=== PATIENT | female | born 1940 | race Caucasian/White ===

== ENCOUNTER 2021-03-12 07:33 | Observation (INO) | payer MEDICARE ==
--- NOTE | 2021-03-12 07:52 | ED ---
General Adult HPI - General Chief complaint: Arrhythmia/Palpitations Stated complaint: bradycardia Time Seen by Provider: 03/12/21 07:34 Source: patient, EMS, RN notes reviewed Mode of arrival: EMS Limitations: no limitations - History of Present Illness Initial comments: Patient is a pleasant 81-year-old female presenting from [facility] with concerns for bradycardia. Unclear patient has a history of this previously. Patient is unclear on her medications. Chart reviewed. Patient states she does have fatigue. Fatigue has been intermittent. Patient is unclear how long - Related Data Home Medications Medication Instructions Recorded Confirmed Cholecalciferol [Vitamin D3 (25 1,000 unit PO DAILY 04/07/17 04/07/17 Mcg = 1000 Iu)] Cyanocobalamin (Vitamin B-12) 1,000 mcg PO Q48H 04/07/17 04/07/17 [Vitamin B-12] Etodolac [Lodine] 400 mg PO DAILY 04/07/17 04/07/17 Famotidine [Pepcid] 20 mg PO DAILY 04/07/17 04/07/17 Furosemide [Lasix] 60 mg PO DAILY 04/07/17 04/08/17 Levothyroxine Sodium [Synthroid] 50 mcg PO DAILY 04/07/17 04/07/17 Lovastatin [Mevacor] 80 mg PO DAILY 04/07/17 04/08/17 Multivit-Min/Iron/Folic/Lutein 1 tab PO DAILY 04/07/17 04/07/17 [Centrum Silver Women Tablet] Potassium Chloride [Klor-Con 20] 20 meq PO DAILY 04/07/17 04/08/17 Fluticasone Nasal [place] [Flonase 2 spr EA NOSTRIL DAILY PRN 04/08/17 04/08/17 Nasal [place]] Losartan Potassium 100 mg PO DAILY 04/08/17 04/08/17 hydroCHLOROthiazide 25 mg PO BID 04/08/17 04/08/17 Previous Rx's Medication Instructions Recorded Amoxic-Pot Clav 875-125Mg 1 tab PO Q12HR #10 tablet 04/14/17 [Augmentin 875-125] Ipratropium-Albuterol Nebulize 3 ml INHALATION RT-Q4H PRN 04/14/17 [Duoneb 0.5 mg-3 mg/3 ml Soln] ampul.neb Ipratropium-Albuterol Nebulize 3 ml INHALATION RT-QID ampul.neb 04/14/17 [Duoneb 0.5 mg-3 mg/3 ml Soln] Metoprolol Succinate (ER) [Toprol 12.5 mg PO BID tab.er.24h 04/14/17 XL] predniSONE 10 mg PO DIRECTED #9 tab 04/14/17 Allergies Allergy/AdvReac Type Severity Reaction Status Date / Time No Known Allergies Allergy Verified 03/12/21 07:42 Review of Systems ROS Statement: Those systems with pertinent positive or pertinent negative responses have been documented in the HPI. ROS Other: All systems not noted in ROS Statement are negative. Constitutional: Denies: fever Eyes: Denies: eye pain ENT: Denies: ear pain Respiratory: Denies: cough Cardiovascular: Denies: chest pain, palpitations Endocrine: Reports: fatigue Gastrointestinal: Denies: abdominal pain Genitourinary: Denies: urgency Musculoskeletal: Denies: back pain Skin: Denies: rash Neurological: Denies: weakness Past Medical History Past Medical History: Hypertension, Thyroid Disorder Additional Past Medical History / Comment(s): hiatal hernia. History of Any Multi-Drug Resistant Organisms: None Reported Past Surgical History: Joint Replacement Additional Past Surgical History / Comment(s): bilat hip replacements. Past Anesthesia/Blood Transfusion Reactions: No Reported Reaction Past Psychological History: Depression Smoking Status: Never smoker Past Alcohol Use History: None Reported Past Drug Use History: None Reported - Past Family History Mother History Unknown: Yes Father History Unknown: Yes General Exam Limitations: no limitations General appearance: alert, in no apparent distress Head exam: Present: normocephalic Eye exam: Present: normal appearance Neck exam: Present: normal inspection Respiratory exam: Present: normal lung sounds bilaterally Cardiovascular Exam: Present: bradycardia Expanded Peripheral pulses: 2+: Radial (R), Radial (L), Dorsalis Pedis (R), Dorsalis Pedis (L) GI/Abdominal exam: Present: soft. Absent: tenderness Extremities exam: Present: pedal edema (Trace bilateral). Absent: calf tenderness Neurological exam: Present: alert Psychiatric exam: Present: normal affect, normal mood Skin exam: Present: normal color Course Vital Signs 03/12/21 07:37 Temperature 98 F Pulse Rate 43 L Respiratory 18 Rate Blood Pressure 125/50 O2 Sat by Pulse 98 Oximetry EKG Findings - EKG Comments: EKG Findings:: Sinus bradycardia rate 38. MS 174. QRS 122. QT 542. QTC 4:30. Left axis. LVH. No acute ST change. Inferior T wave inversion. Medical Decision Making - Medical Decision Making Patient reevaluated and updated. Dr. Drew has been paged for admission cov ering Dr. Yan. - Lab Data Result diagrams: 03/12/21 07:47 03/12/21 07:47 Lab Results 03/12/21 03/12/21 03/12/21 Range/Units 07:47 07:47 07:47 WBC 9.2 (3.8-10.6) k/uL RBC 3.94 (3.80-5.40) m/uL Hgb 12.1 (11.4-16.0) gm/dL Hct 35.0 (34.0-46.0) % MCV 88.9 (80.0-100.0) fL MCH 30.6 (25.0-35.0) pg MCHC 34.4 (31.0-37.0) g/dL RDW 13.4 (11.5-15.5) % Plt Count 317 (150-450) k/uL MPV 7.2 Neutrophils % 69 % Lymphocytes % 20 % Monocytes % 5 % Eosinophils % 5 % Basophils % 1 % Neutrophils # 6.3 (1.3-7.7) k/uL Lymphocytes # 1.8 (1.0-4.8) k/uL Monocytes # 0.4 (0-1.0) k/uL Eosinophils # 0.4 (0-0.7) k/uL Basophils # 0.1 (0-0.2) k/uL PT 10.4 (9.0-12.0) sec INR 1.0 (<1.2) APTT 22.4 (22.0-30.0) sec Sodium 134 L (137-145) mmol/L Potassium 3.5 (3.5-5.1) mmol/L Chloride 93 L (98-107) mmol/L Carbon Dioxide 35 H (22-30) mmol/L Anion Gap 6 mmol/L BUN 33 H (7-17) mg/dL Creatinine 0.81 (0.52-1.04) mg/dL Est GFR (CKD-EPI)AfAm 80 (>60 ml/min/1.73 sqM) Est GFR (CKD-EPI)NonAf 70 (>60 ml/min/1.73 sqM) Glucose 114 H (74-99) mg/dL Calcium 9.1 (8.4-10.2) mg/dL Magnesium 1.5 L (1.6-2.3) mg/dL Total Bilirubin 0.7 (0.2-1.3) mg/dL AST 31 (14-36) U/L ALT 15 (4-34) U/L Alkaline Phosphatase 85 (38-126) U/L Total Protein 6.8 (6.3-8.2) g/dL Albumin 3.2 L (3.5-5.0) g/dL - Radiology Data Radiology results: image reviewed (This x-ray shows elevated right hemidiaphragm) Disposition Clinical Impression: Bradycardia Disposition: ADMITTED IP TO THIS [facility] Is patient prescribed a controlled substance at d/c from ED?: No Referrals: Michael Wolfe MD [Primary Care Provider] - 1-2 days Decision Time: 09:02
[2021-03-12 08:29] LABS: Basophils # (A) 0.1 k/uL (0-0.2); Basophils % (A) 1 %; Eosinophils # (A) 0.4 k/uL (0-0.7); Eosinophils % (A) 5 %; HGB 12.1 gm/dL (11.4-16.0); Lymphocytes # (A) 1.8 k/uL (1.0-4.8); Lymphocytes % (A) 20 %; MCH 30.6 pg (25.0-35.0); MCHC 34.4 g/dL (31.0-37.0); MCV 88.9 fL (80.0-100.0); Mean Platelet Volume 7.2; Monocytes # (A) 0.4 k/uL (0-1.0); Monocytes % (A) 5 %; Neutrophils # (A) 6.3 k/uL (1.3-7.7); Neutrophils % (A) 69 %; Platelet Count 317 k/uL (150-450); RBC 3.94 m/uL (3.80-5.40); RDW 13.4 % (11.5-15.5); WBC 9.2 k/uL (3.8-10.6)
--- NOTE | 2021-03-12 08:29 | XR ---
EXAMINATION TYPE: XR chest 1V portable DATE OF EXAM: 03/12/2021 COMPARISON: 04/13/2017 HISTORY: Dysrhythmia TECHNIQUE: Single frontal view of the chest is obtained. FINDINGS: There is no focal air space opacity, pleural effusion, or pneumothorax seen. The cardiac silhouette size is within normal limits. The osseous structures are intact. Persistent elevated rig ht hemidiaphragm. Heart size stable. Arthropathy of the right shoulder. Suggestion of calcified lymph node in the right hilum. 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
[2021-03-12 08:42] LABS: Partial Thromboplastin Time 22.4 sec (22.0-30.0); Prothrombin Time 10.4 sec (9.0-12.0)
[2021-03-12 08:48] LABS: Albumin 3.2 g/dL (3.5-5.0); Calcium 9.1 mg/dL (8.4-10.2); Total Bilirubin 0.7 mg/dL (0.2-1.3); Total Protein 6.8 g/dL (6.3-8.2)
[2021-03-12 08:56] LABS: Magnesium 1.5 mg/dL (1.6-2.3); Potassium 3.5 mmol/L (3.5-5.1)
[2021-03-12] MEDS ORDERED: MAGNESIUM SULFATE-D5W PMX 1 GM in DEXTROSE/WATER 1 100ML.BAG IVPB ONE (09:00)
[2021-03-12] MEDS ORDERED: SODIUM CHLORIDE 0.9% 1,000 ML IV STA (09:01)
[2021-03-12] MEDS ORDERED: NALOXONE 0.4 MG/ML 1 ML VIAL IV PRN (09:03)
[2021-03-12 09:04] LABS: T4, Free (Free Thyroxine) 1.75 ng/dL (0.78-2.19)
[2021-03-12] MEDS ORDERED: POTASSIUM CHLORIDE ER 20 MEQ TAB.ER PO STA (09:35)
[2021-03-12] MEDS: SODIUM CHLORIDE 0.9% 1,000 ML IV SCH (09:40)
--- NOTE | 2021-03-12 11:24 | P.CRDCN ---
History of Present Illness History of present illness: HISTORY OF PRESENTING ILLNESS This is a pleasant 81-year-old female past medical history significant for hypertension, hypothyroidism, obstructive sleep apnea, hyperlipidemia, history of bronchitis. 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 We have been asked to see in consultation for bradycardia. Patient is seen and examined in the emergency department. She currently is at [facility], She was sent to the emergency department for generalized weakness and found to be bradycardic heart rate in the 30s. Her home medications include metoprolol titrate 25 mg BID, metolazone 2.5 mg MWF, potassium chloride 20meq daily, magnesium oxide 400 mg daily, atorvastatin 20 mg nightly, Lasix 40 mg BID. DIAGNOSTICS EKG reveals sinus bradycardia, heart rate 38, left axis deviation, T wave inversion in lead III. Prior EKG in 2017 with similar findings however HR was in the 50s. Telemetry tracings indicate sinus bradycardia, heart rate in the 30s Chest xray persistent elevated right hemidiaphragm Laboratory reviewed, CBC unremarkable, INR 1.0, sodium 134, potassium 3.5, BUN 33, serum creatinine 0.8, magnesium 1.5, troponin negative 1, TSH within normal limits No Echocardiogram on file. REVIEW OF SYSTEMS At the time of my exam: CONSTITUTIONAL: Denies fever or chills. +generalized weakness/fatigue CARDIOVASCULAR: Denies chest pain, shortness of breath, orthopnea, PND or palpitations. RESPIRATORY: Denies cough. GASTROINTESTINAL: Denies abdominal pain, diarrhea, constipation, nausea or vomiting. MUSCULOSKELETAL: Denies myalgias. NEUROLOGIC: Denies numbness, tingling, headacbe or weakness. ENDOCRINE: Denies fatigue, weight change, polydipsia or polyurina. GENITOURINARY: Denies burning, hematuria or urgency with micturation. HEMATOLOGIC: Denies history of anemia or bleeding. PHYSICAL EXAMINATION Blood pressure 127/62, heart rate 80, afebrile, oxygen saturation is 96% on 2 L nasal cannula. CONSTITUTIONAL: No apparent distress. HEENT: Head is normocephalic. Pupils are equal, round. Sclerae anicteric. Mucous membranes of the mouth are moist. No JVD. No carotid bruit. CHEST EXAMINATION: Lungs are clear to auscultation. No chest wall tenderness is noted on palpation or with deep breathing. HEART EXAMINATION: Regular rate and rhythm. S1, S2 heard. No murmurs, gallops or rub. ABDOMEN: Soft, nontender. Positive bowel sounds. EXTREMITIES: 2+ peripheral pulses, Redness bilateral lower extremities, No lower extremity edema and no calf tenderness. NEUROLOGIC EXAMINATION: Patient is awake, alert and oriented x2 ASSESSMENT Sinus bradycardia History of hypertension Hyperlipidemia Obstructive sleep apnea History of bronchitis Hypokalemia PLAN Hold all cardiac medications at this time. Hold beta didi Continue cardiac telemetry Obtain 2D echocardiogram Replace magnesium and potassium Monitor renal function and electrolytes Further recommendations based on clinical course Nurse Practitioner note has been reviewed, I agree with a documented findings and plan of care. Patient was seen and examined. Past Medical History Past Medical History: Hypertension, Thyroid Disorder Additional Past Medical History / Comment(s): hiatal hernia. History of Any Multi-Drug Resistant Organisms: None Reported Past Surgical History: Joint Replacement Additional Past Surgical History / Comment(s): bilat hip replacements. Past Anesthesia/Blood Transfusion Reactions: No Reported Reaction Past Psychological History: Depression Smoking Status: Never smoker Past Alcohol Use History: None Reported Past Drug Use History: None Reported - Past Family History Mother History Unknown: Yes Father History Unknown: Yes Medications and Allergies Home Medications Medication Instructions Recorded Confirmed Type Cholecalciferol [Vitamin D3 (25 50 mcg PO DAILY@1700 04/07/17 03/12/21 History Mcg = 1000 Iu)] Furosemide [Lasix] 40 mg PO BID@0800,1700 04/07/17 03/12/21 History Multivit-Min/Iron/Folic/Lutein 1 tab PO DAILY@1700 04/07/17 03/12/21 History [Centrum Silver Women Tablet] Potassium Chloride [Klor-Con 20] 20 meq PO DAILY@0800 04/07/17 03/12/21 History Acetaminophen Tab [Tylenol Tab] 1,000 mg PO Q8H PRN 03/12/21 03/12/21 History Amoxic-Pot Clav 875-125Mg 1 tab PO BID@0800,1700 03/12/21 03/12/21 History [Augmentin 875-125] Atorvastatin [Lipitor] 20 mg PO HS 03/12/21 03/12/21 History Cyanocobalamin [Vitamin B-12] 1,000 mcg PO Q48H 03/12/21 03/12/21 History Doxycycline Hyclate 100 mg PO BID@0800,1700 03/12/21 03/12/21 History Ensure Enlive 120 ml PO BID@0800,1700 03/12/21 03/12/21 History L.acidoph,Paracasei, B.lactis 1 cap PO DAILY@1700 03/12/21 03/12/21 History [Probiotic] Levothyroxine Sodium [Levoxyl] 50 mcg PO DAILY@0600 03/12/21 03/12/21 History Magnesium Hydroxide [Milk of 7,200 mg PO Q48H PRN 03/12/21 03/12/21 History Magnesia Concentrate] Magnesium Oxide 400 mg PO DAILY@1700 03/12/21 03/12/21 History Metoprolol Tartrate [Lopressor] 25 mg PO BID@0800,1700 03/12/21 03/12/21 History Na Phos,M-B/Na Phos,Di-Ba [Fleet 133 ml RECTAL DAILY PRN 03/12/21 03/12/21 History Adult] Sucralfate [Carafate] 1 gm PO TID@0700,1100,1630 03/12/21 03/12/21 History bisacodyL [Dulcolax] 10 mg RECTAL DAILY PRN 03/12/21 03/12/21 History metOLazone [Zaroxolyn] 2.5 mg PO MOWEFR@0600 03/12/21 03/12/21 History Allergies Allergy/AdvReac Type Severity Reaction Status Date / Time No Known Allergies Allergy Verified 03/12/21 10:27 Physical Exam Vitals: Vital Signs Temp Pulse Resp BP Pulse Ox 03/12/21 11:01 38 L 16 127/62 96 03/12/21 09:29 37 L 18 133/63 97 03/12/21 07:37 98 F 43 L 18 125/50 98 Intake and Output 03/11/21 03/12/21 03/12/21 22:59 06:59 14:59 Other: Weight 95.254 kg Results 03/12/21 07:47 03/12/21 07:47 Cardiac Enzymes 03/12/21 03/12/21 Range/Units 07:47 07:47 AST 31 (14-36) U/L Troponin I 0.015 (0.000-0.034) ng/mL Coagulation 03/12/21 Range/Units 07:47 PT 10.4 (9.0-12.0) sec APTT 22.4 (22.0-30.0) sec CBC 03/12/21 Range/Units 07:47 WBC 9.2 (3.8-10.6) k/uL RBC 3.94 (3.80-5.40) m/uL Hgb 12.1 (11.4-16.0) gm/dL Hct 35.0 (34.0-46.0) % Plt Count 317 (150-450) k/uL Comprehensive Metabolic Panel 03/12/21 Range/Units 07:47 Sodium 134 L (137-145) mmol/L Potassium 3.5 (3.5-5.1) mmol/L Chloride 93 L (98-107) mmol/L Carbon Dioxide 35 H (22-30) mmol/L BUN 33 H (7-17) mg/dL Creatinine 0.81 (0.52-1.04) mg/dL Glucose 114 H (74-99) mg/dL Calcium 9.1 (8.4-10.2) mg/dL AST 31 (14-36) U/L ALT 15 (4-34) U/L Alkaline Phosphatase 85 (38-126) U/L Total Protein 6.8 (6.3-8.2) g/dL Albumin 3.2 L (3.5-5.0) g/dL Current Medications Generic Name Dose Route Start Last Admin Trade Name Freq PRN Reason Stop Dose Admin Sodium Chloride 1,000 mls @ 75 mls/hr 03/12/21 09:01 03/12/21 09:38 Saline 0.9% IV 03/12/21 22:20 75 mls/hr .[id number] STA Administration Sodium Chloride 1,000 mls @ 75 mls/hr 03/12/21 09:15 03/12/21 09:40 Saline 0.9% IV Not Given .[id number] DARRIUS Levothyroxine Sodium 50 mcg 03/13/21 06:30 Levothyroxine 50 Mcg Tab PO 0630 DARRIUS Naloxone HCl 0.2 mg 03/12/21 09:03 Naloxone 0.4 Mg/Ml 1 Ml Vial IV Q2M PRN Opioid Reversal Intake and Output 03/11/21 03/12/21 03/12/21 22:59 06:59 14:59 Other: Weight 95.254 kg Patient Weight 03/13/21 06:59 Weight 95.254 kg 03/12/21 07:47 03/12/21 07:47
[2021-03-12] MEDS: ACETAMINOPHEN TAB 500 MG TAB PO PRN (12:39)
--- NOTE | 2021-03-12 16:32 | P.HPIM ---
History of Present Illness H&P Date: 03/12/21 This is a pleasant 81 year old female who presents from [facility] for complaints of feeling fatigued. There is also concern for bradycardia. Patient denies any dizziness or lightheadedness, denies any chest pain, chest pressure or shortness breath. She denies any cough, congestion, fever or chills. Patient recently in the hospital for bilateral lower extremity cellulitis which was treated with an tibiotics and discharged to rehab to complete a course of oral Augmentin and oral doxycycline which we will continue. Metoprolol was placed on hold in the EC. EKG on admission shows heart rate 38, sinus bradycardia, T-wave inversion in lead 3. This is similar to an EKG in 2017 however at that time the heart rate was in the 50s. 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 Labs on admission show a blood cell count 9.2, hemoglobin 12.1, sodium 134, potassium 3.5, BUN 33, creatinine 0.81, glucose 114, magnesium 1.5, troponin negative at 0.015, albumin is 3.2. TSH is 1.500, free T4 1 0.75. Covid PCR is not detected. Patient was evaluated by cardiology who recommends holding beta didi. Patient will be monitored overnight to see if her heart rate increases. An echocardiogram is currently pending. Vital signs include a temperature of 98, heart rate 43 sinus bradycardia it was as low as 37, blood pressure 125/55, patient is 95% on 2 L nasal cannula. She does not wear any oxygen at [facility]. We did replace electrolytes per protocol we will repeat all labs tomorrow. Resume home medications. Patient may possibly need a pacemaker for heart rate does not increase. REVIEW OF SYSTEMS: CONSTITUTIONAL: No fever, no malaise. Reports fatigue. HEENT: No recent visual problems or hearing problems. Denied any sore throat. CARDIOVASCULAR: No chest pain, orthopnea, PND, no palpitations, no syncope. PULMONARY: No shortness of breath, no cough, no hemoptysis. GASTROINTESTINAL: No diarrhea, no nausea, no vomiting, no abdominal pain. NEUROLOGICAL: No headaches, no weakness, no numbness. HEMATOLOGICAL: Denies any bleeding or petechiae. GENITOURINARY: Denies any burning micturition, frequency, or urgency. Reports urinary incontinence. MUSCULOSKELETAL/RHEUMATOLOGICAL: Denies any joint pain, swelling, or any muscle pain. ENDOCRINE: Denies any polyuria or polydipsia. The rest of the 14-point review of systems is negative. PHYSICAL EXAMINATION: GENERAL: The patient is alert and oriented x3, not in any acute distress. Well developed, well nourished. HEENT: Pupils are round and equally reacting to light. EOMI. No scleral icterus. No conjunctival pallor. Normocephalic, atraumatic. No pharyngeal erythema. No thyromegaly. CARDIOVASCULAR: S1 and S2 present. No murmurs, rubs, or gallops. Bradycardic. PULMONARY: Chest is clear to auscultation, no wheezing or crackles. ABDOMEN: Soft, nontender, nondistended, normoactive bowel sounds. No palpable organomegaly. MUSCULOSKELETAL: No joint swelling or deformity. EXTREMITIES: No cyanosis, clubbing, LE +2 non pitting edema, hyperpigmentation to hannah LE. NEUROLOGICAL: Gross neurological examination did not reveal any focal deficits. SKIN: No rashes. healing scabbed wound to Right Guerrero. Assessment and Plan Assessment Sinus bradycardia, holding Beta didi, monitor heart rate History of hypothyroidism, TSH and T4 within normal limits History of recent hospitalization for cellulitis on oral antibiotics History of generalized weakness with medical debility currently at rehab History of hypertension Hyperlipidemia Obstructive sleep apnea Hypokalemia Hypomagnesemia Hyponatremia, probably related to dehydration DVT Prophlaxis: SubCu Heparin GI Prophylaxis: Protonix FULL CODE Plan Cardiology Consult Continue telemetry monitoring Hold all cardiac medications; including beta didi Resume all other home medications Replace electrolytes per protocol Repeat labs in AM. PT/OT Past Medical History Past Medical History: Hypertension, Thyroid Disorder Additional Past Medical History / Comment(s): hiatal hernia. History of Any Multi-Drug Resistant Organisms: None Reported Past Surgical History: Joint Replacement Additional Past Surgical History / Comment(s): bilat hip replacements. Past Anesthesia/Blood Transfusion Reactions: No Reported Reaction Past Psychological History: Depression Smoking Status: Never smoker Past Alcohol Use History: None Reported Past Drug Use History: None Reported - Past Family History Mother History Unknown: Yes Father History Unknown: Yes Medications and Allergies Home Medications Medication Instructions Recorded Confirmed Type Cholecalciferol [Vitamin D3 (25 50 mcg PO DAILY@1700 12/26/17 11/30/21 History Mcg = 1000 Iu)] Furosemide [Lasix] 40 mg PO BID@0800,1700 04/07/17 03/12/21 History Multivit-Min/Iron/Folic/Lutein 1 tab PO DAILY@1700 04/07/17 03/12/21 History [Centrum Silver Women Tablet] Potassium Chloride [Klor-Con 20] 20 meq PO DAILY@0800 04/07/17 03/12/21 History Acetaminophen Tab [Tylenol Tab] 1,000 mg PO Q8H PRN 03/12/21 03/12/21 History Amoxic-Pot Clav 875-125Mg 1 tab PO BID@0800,1700 03/12/21 03/12/21 History [Augmentin 875-125] Atorvastatin [Lipitor] 20 mg PO HS 03/12/21 03/12/21 History Cyanocobalamin [Vitamin B-12] 1,000 mcg PO Q48H 03/12/21 03/12/21 History Doxycycline Hyclate 100 mg PO BID@0800,1700 03/12/21 03/12/21 History Ensure Enlive 120 ml PO BID@0800,1700 03/12/21 03/12/21 History L.acidoph,Paracasei, B.lactis 1 cap PO DAILY@1700 03/12/21 03/12/21 History [Probiotic] Levothyroxine Sodium [Levoxyl] 50 mcg PO DAILY@0600 03/12/21 03/12/21 History Magnesium Hydroxide [Milk of 7,200 mg PO Q48H PRN 03/12/21 03/12/21 History Magnesia Concentrate] Magnesium Oxide 400 mg PO DAILY@1700 03/12/21 03/12/21 History Metoprolol Tartrate [Lopressor] 25 mg PO BID@0800,1700 03/12/21 03/12/21 History Na Phos,M-B/Na Phos,Di-Ba [Fleet 133 ml RECTAL DAILY PRN 03/12/21 03/12/21 History Adult] Sucralfate [Carafate] 1 gm PO TID@0700,1100,1630 03/12/21 03/12/21 History bisacodyL [Dulcolax] 10 mg RECTAL DAILY PRN 03/12/21 03/12/21 History metOLazone [Zaroxolyn] 2.5 mg PO MOWEFR@0600 03/12/21 03/12/21 History Allergies Allergy/AdvReac Type Severity Reaction Status Date / Time No Known Allergies Allergy Verified 03/12/21 10:27 Physical Exam Vitals: Vital Signs Temp Pulse Resp BP Pulse Ox 03/12/21 11:01 38 L 16 127/62 96 03/12/21 09:29 37 L 18 133/63 97 03/12/21 07:37 98 F 43 L 18 125/50 98 Intake and Output 03/11/21 03/12/21 03/12/21 22:59 06:59 14:59 Other: Weight 95.254 kg Results CBC & Chem 7: 03/12/21 07:47 03/12/21 07:47 Labs: Abnormal Lab Results - Last 24 Hours (Table) 03/12/21 Range/Units 07:47 Sodium 134 L (137-145) mmol/L Chloride 93 L (98-107) mmol/L Carbon Dioxide 35 H (22-30) mmol/L BUN 33 H (7-17) mg/dL Glucose 114 H (74-99) mg/dL Magnesium 1.5 L (1.6-2.3) mg/dL Albumin 3.2 L (3.5-5.0) g/dL Assessment and Plan Time with Patient: Greater than 30
[2021-03-12] MEDS ORDERED: NON FORMULARY DRUG (Ensure Enlive 120 ML) PO SCH (17:00)
[2021-03-12] MEDS: AMOXIC-POT CLAV 875-125MG 1 EACH TAB PO SCH (17:21)
[2021-03-12] MEDS: DOXYCYCLINE 100 MG CAP PO SCH (17:21)
[2021-03-12] MEDS: MAGNESIUM OXIDE 400 MG TAB PO SCH (17:24)
[2021-03-12] MEDS: SUCRALFATE 1 GM TAB PO SCH (17:24)
[2021-03-12] MEDS: MULTIVITAMINS, THERA 1 EACH TAB PO SCH (17:24)
[2021-03-12] MEDS: CHOLECALCIFEROL 25 MCG (1000 IU) TABLET PO SCH (17:26)
[2021-03-12] MEDS: HEPARIN SODIUM,PORCINE/PF 5,000 UNIT/0.5 ML SYRINGE SQ SCH (20:54)
[2021-03-12] MEDS: ATORVASTATIN 20 MG TAB PO SCH (20:54)
[2021-03-13] MEDS: SODIUM CHLORIDE 0.9% 1,000 ML IV SCH ×2 (02:02→11:15)
[2021-03-13] MEDS: LEVOTHYROXINE 50 MCG TAB PO SCH (05:54)
[2021-03-13 07:00] LABS: African American GFR (CKD) >90 (>60 ml/min/1.73 sqM); Anion Gap 6 mmol/L; Blood Urea Nitrogen 22 mg/dL (7-17); Carbon Dioxide 33 mmol/L (22-30); Chloride 95 mmol/L (98-107); Glucose 107 mg/dL (74-99); Magnesium 1.6 mg/dL (1.6-2.3); Non-African American GFR(CKD) 83 (>60 ml/min/1.73 sqM); Potassium 3.5 mmol/L (3.5-5.1); Sodium 134 mmol/L (137-145)
[2021-03-13] MEDS: PANTOPRAZOLE 40 MG TABLET PO SCH (07:00)
[2021-03-13] MEDS: DOXYCYCLINE 100 MG CAP PO SCH ×2 (07:00→16:20)
[2021-03-13] MEDS: AMOXIC-POT CLAV 875-125MG 1 EACH TAB PO SCH ×2 (07:00→16:20)
[2021-03-13] MEDS: HEPARIN SODIUM,PORCINE/PF 5,000 UNIT/0.5 ML SYRINGE SQ SCH ×2 (07:00→19:04)
[2021-03-13] MEDS: POTASSIUM CHLORIDE ER 20 MEQ TAB.ER PO SCH (07:00)
[2021-03-13] MEDS: SUCRALFATE 1 GM TAB PO SCH ×3 (07:01→16:20)
[2021-03-13] MEDS ORDERED: CYANOCOBALAMIN 500 MCG TAB PO SCH (09:00)
[2021-03-13] MEDS ORDERED: Magnesium Replacement Protocol 1 EACH MISC MISCELLANE PRN (09:10)
[2021-03-13] MEDS ORDERED: Potassium Replacement Protocol 1 EACH MISC MISCELLANE PRN (09:11)
[2021-03-13] MEDS: FUROSEMIDE 40 MG TAB PO SCH (09:50)
[2021-03-13] MEDS: MAGNESIUM SULFATE-D5W PMX 1 GM in DEXTROSE/WATER 1 100ML.BAG IVPB SCH ×2 (09:51→11:14)
[2021-03-13] MEDS: ACETAMINOPHEN TAB 500 MG TAB PO PRN (09:54)
[2021-03-13] MEDS ORDERED: POTASSIUM CHLORIDE ER 20 MEQ TAB.ER PO SCH (10:00)
--- NOTE | 2021-03-13 10:50 | ECHOF ---
Referral Reason:LV function MEASUREMENTS -------- HEIGHT: 162.6 cm WEIGHT: 95.3 kg BP: RVIDd: 3.6 cm (< 3.3) IVSd: 1.2 cm (0.6 - 1.1) LVIDd: 4.7 cm (3.9 - 5.3) LVPWd: 1.3 cm (0.6 - 1.1) IVSs: 1.5 cm LVIDs: 3.6 cm LVPWs: 1.5 cm LA Diam: 4.6 cm (2.7 - 3.8) LAESV Index (A-L): 35.69 ml/m Ao Diam: 3.5 cm (2.0 - 3.7) AV Cusp: 2.3 cm (1.5 - 2.6) LA Diam: 4.8 cm (2.7 - 3.8) MV EXCURSION: 16.009 mm (> 18.000) MV EF SLOPE: 36 mm/s (70 - 150) EPSS: 0.8 cm MV E [place]: 0.73 m/s MV DecT: 234 ms MV A [place]: 0.81 m/s MV E/A Ratio: 0.90 RAP: 5.00 mmHg RVSP: 15.73 mmHg FINDINGS -------- Resting bradycardia (HR<60bpm). This was a technically good study. The left ventricular size is normal. There is borderline concentric left ventricular hypertrophy. Overall left ventricular systolic function is normal with, an EF between 55 - 60 %. The right ventricle is normal in size. LA is severely dilated >40 ml/m2 The right atrial size is normal. The aortic valve is trileaflet, and appears structurally normal. No aortic stenosis or regurgitation. Mild mitral regurgitation is present. Mild tricuspid regurgitation present. Right ventricular systolic pressure is normal at < 35 mmHg. Trace/mild (physiologic) pulmonic regurgitation. There is no pericardial effusion. CONCLUSIONS -------- 1. The left ventricular size is normal. 2. Overall left ventricular systolic function is normal with, an EF between 55 - 60 %. 3. The right ventricle is normal in size. 4. LA is severely dilated >40 ml/m2 5. The right atrial size is normal. 6. The aortic valve is trileaflet, and appears structurally normal. No aortic stenosis or regurgitati on. 7. Mild mitral regurgitation is present. 8. Mild tricuspid regurgitation present. 9. Trace/mild (physiologic) pulmonic regurgitation. 10. There is no pericardial effusion. PACKING TRACTOR MACHINE OPERATOR: Manisha King RDCS
--- NOTE | 2021-03-13 11:07 | P.PN ---
Subjective This is a pleasant 81-year-old female past medical history significant for hypertension, hypothyroidism, obstructive sleep apnea, hyperlipidemia, history of bronchitis. She does not follow with a administration physician. We have been asked to see in consultation for bradycardia. She currently is lives at [facility], She was sent to the emergency department on 03/12/21 for generalized weakness and found to be bradycardic heart rate in the 30s. Her home medications include metoprolol titrate 25 mg BID, metolazone 2.5 mg MWF, potassium chloride 20meq daily, magnesium oxide 400 mg daily, atorvastatin 20 mg nightly, Lasix 40 mg BID. Patient seen and examined at bedside, no acute distress. She denies any chest pain or shortness of breath. She denies any palpitations, lightheadedness or dizziness. Telemetry reviewed patient in sinus bradycardia heart rate has improved HR 40-50. Her cardiac medications have been on hold. Her vital signs are stable. Her echocardiogram revealed EF of 5560 percent, LA severely dilated, mild mitral regurgitation, mild tricuspid regurgitation. She is currently maintained on atorvastatin 20 mg nightly, and IV fluids at 75 ml/hr. PHYSICAL EXAMINATION Blood pressure 119/59, heart rate 41, afebrile SATURATIONS greater than 92% on 3 L nasal cannula CONSTITUTIONAL: No apparent distress. HEENT: Neck supple. No JVD. CHEST EXAMINATION: Lungs are clear to auscultation. HEART EXAMINATION: Regular rate and rhythm. S1, S2 heard. No murmurs, gallops or rub. ABDOMEN: Soft, nontender. Positive bowel sounds. EXTREMITIES: 2+ peripheral pulses, Redness bilateral lower extremities, No lower extremity edema and no calf tenderness. NEUROLOGIC EXAMINATION: Patient is awake, alert and oriented x2 ASSESSMENT Sinus bradycardia History of hypertension Hyperlipidemia Obstructive sleep apnea History of bronchitis Hypokalemia PLAN -Restart Lasix 40mg daily, Continue statin -Decrease IV fluids -Continue to hold any AV rojelio blocking agents -Continue cardiac telemetry -Replace magnesium and potassium -Increase activity as tolerated -Monitor renal function and electrolytes -Recommend monitoring on telemetry for 24 hours to monitor heart rate. At this time, patient has had an improvement in her heart rate with holding of her beta didi, no indication for pacemaker implantation at this time. -Further recommendations based on clinical course Nurse Practitioner note has been reviewed, I agree with a documented findings and plan of care. Patient was seen and examined. Objective - Vital Signs Vital signs: Vital Signs Temp 97.5 F L 03/13/21 07:00 Pulse 41 L 03/13/21 07:00 Resp 20 03/13/21 07:00 BP 119/59 03/13/21 07:00 Pulse Ox 99 03/13/21 07:00 Intake & Output 03/12/21 03/13/21 03/13/21 18:59 06:59 18:59 Weight 95.254 kg Other: Voiding Method Toilet Toilet # Voids 2 0 - Labs CBC & Chem 7: 03/12/21 07:47 03/13/21 06:21 Labs: Abnormal Lab Results - Last 24 Hours (Table) 03/13/21 Range/Units 06:21 Sodium 134 L (137-145) mmol/L Chloride 95 L (98-107) mmol/L Carbon Dioxide 33 H (22-30) mmol/L BUN 22 H (7-17) mg/dL Glucose 107 H (74-99) mg/dL
--- NOTE | 2021-03-13 14:21 | P.PN ---
Subjective Progress Note Date: 03/13/21 This is a pleasant 81 year old female who presents from [facility] for complaints of feeling fatigued. There is also concern for bradycardia. Patient denies any dizziness or lightheadedness, denies any chest pain, chest pressure or shortness breath. She denies any cough, congestion, fever or chills. Patient recently in the hospital for bilateral lower extremity cellulitis which was treated with antibiotics and discharged to rehab to complete a course of oral Augmentin and oral doxycycline which we will continue. Metoprolol was placed on hold in the EC. EKG on admission shows heart rate 38, sinus bradycardia, T-wave inversion in lead 3. This is similar to an EKG in 2017 however at that time the heart rate was in the 50s. 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 Labs on admission show a blood cell count 9.2, hemoglobin 12.1, sodium 134, potassium 3.5, BUN 33, creatinine 0.81, glucose 114, magnesium 1.5, troponin negative at 0.015, albumin is 3.2. TSH is 1.500, free T4 1 0.75. Covid PCR is not detected. Patient was evaluated by cardiology who recommends holding beta didi. Patient will be monitored overnight to see if her heart rate increases. An echocardiogram is currently pending. Vital signs include a temperature of 98, heart rate 43 sinus bradycardia it was as low as 37, blood pressure 125/55, patient is 95% on 2 L nasal cannula. She does not wear any oxygen at [facility]. We did replace electrolytes per protocol we will repeat all labs tomorrow. Resume home medications. Patient may possibly need a pacemaker for heart rate does not increase. 03/14/2021 Patient evaluated today resting bed. as overnight. Her areas improved to the high 40s still bradycardic. She denies any nausea vomiting diarrhea. She d enies any dizziness or lightheadedness. Denies any chest pain, chest cough shortness of breath. Patient difficulty working with PT today, she states that she was unable to bear weight for a long with a walker. She states that usually uses a lift to help her stand. Cardiology resumed Lasix today, beta didi will also be on hold, if no acute episodes overnight patient be cleared for discharge back to rehab tomorrow. There is no plans for a pacemaker insertion at this time. Labs today show sodium 134, potassium 3.5, chloride 95, CO2 33, mag 1.6. We did replace lites per protocol. Covid PCR is not detected. Blood pressure today is 119/59. ROS Constitutional: Denied any fatigue denied any fever. Cardio vascular: denied any chest pain, palpitations Gastrointestinal denied any nausea vomiting Pulmonary: Denied any shortness of breath cough Neurologic denied any new focal deficits All inpatient medications were reviewed and appropriate changes in these medications as dictated in the interval history and assessment and plan. PHYSICAL EXAMINATION: GENERAL: The patient is alert and oriented x3, not in any acute distress. Well developed, well nourished. Obese. HEENT: Pupils are round and equally reacting to light. EOMI. No scleral icterus. No conjunctival pallor. Normocephalic, atraumatic. No pharyngeal erythema. No thyromegaly. CARDIOVASCULAR: S1 and S2 present. No murmurs, rubs, or gallops. Bradycardic. PULMONARY: Chest is clear to auscultation, no wheezing or crackles. ABDOMEN: Soft, nontender, nondistended, normoactive bowel sounds. No palpable organomegaly. MUSCULOSKELETAL: No joint swelling or deformity. EXTREMITIES: No cyanosis, clubbing, LE +1 non pitting edema, hyperpigmentation to hannah LE. NEUROLOGICAL: Gross neurological examination did not reveal any focal deficits. SKIN: No rashes. healing scabbed wound to Right Guerrero. Assessment and Plan Assessment Sinus bradycardia, holding Beta didi, monitor heart rate now in the high 40s History of hypothyroidism, TSH and T4 within normal limits History of recent hospitalization for cellulitis on oral antibiotics History of generalized weakness with medical debility currently at rehab History of hypertension Hyperlipidemia Obstructive sleep apnea Hypokalemia probably related to poor oral intake Hypomagnesemia related to poor oral intake Hyponatremia, probably related to dehydration DVT Prophlaxis: SubCu Heparin GI Prophylaxis: Protonix FULL CODE Plan Cardiology Consult Continue telemetry monitoring Resume Lasix, hold beta didi Resume all other home medications Replace electrolytes per protocol Repeat labs in AM. PT/OT If cleared by cardiology will discharged to rehab tomorrow. Objective - Vital Signs Vital signs: Vital Signs Temp 97.5 F L 03/13/21 07:00 Pulse 41 L 03/13/21 07:00 Resp 20 03/13/21 07:00 BP 119/59 03/13/21 07:00 Pulse Ox 99 03/13/21 07:00 Intake & Output 03/12/21 03/13/21 03/13/21 18:59 06:59 18:59 Weight 95.254 kg Other: Voiding Method Toilet Toilet # Voids 2 2 - Labs CBC & Chem 7: 03/12/21 07:47 03/13/21 06:21 Labs: Abnormal Lab Results - Last 24 Hours (Table) 03/13/21 Range/Units 06:21 Sodium 134 L (137-145) mmol/L Chloride 95 L (98-107) mmol/L Carbon Dioxide 33 H (22-30) mmol/L BUN 22 H (7-17) mg/dL Glucose 107 H (74-99) mg/dL Assessment and Plan Time with Patient: Greater than 30
[2021-03-13] MEDS: MULTIVITAMINS, THERA 1 EACH TAB PO SCH (16:20)
[2021-03-13] MEDS: CHOLECALCIFEROL 25 MCG (1000 IU) TABLET PO SCH (16:20)
[2021-03-13] MEDS: MAGNESIUM OXIDE 400 MG TAB PO SCH (16:20)
[2021-03-13] MEDS: ATORVASTATIN 20 MG TAB PO SCH (19:04)
[2021-03-14] MEDS: ACETAMINOPHEN TAB 500 MG TAB PO PRN (01:32)
[2021-03-14] MEDS: LEVOTHYROXINE 50 MCG TAB PO SCH (05:34)
[2021-03-14] MEDS: SODIUM CHLORIDE 0.9% 1,000 ML IV SCH (07:37)
[2021-03-14] MEDS: AMOXIC-POT CLAV 875-125MG 1 EACH TAB PO SCH (07:37)
[2021-03-14] MEDS: FUROSEMIDE 40 MG TAB PO SCH (07:37)
[2021-03-14] MEDS: HEPARIN SODIUM,PORCINE/PF 5,000 UNIT/0.5 ML SYRINGE SQ SCH (07:37)
[2021-03-14] MEDS: DOXYCYCLINE 100 MG CAP PO SCH (07:37)
[2021-03-14] MEDS: SUCRALFATE 1 GM TAB PO SCH ×2 (07:37→11:28)
[2021-03-14] MEDS: PANTOPRAZOLE 40 MG TABLET PO SCH (07:37)
[2021-03-14] MEDS: POTASSIUM CHLORIDE ER 20 MEQ TAB.ER PO SCH (07:37)
[2021-03-14 08:13] VITALS: RESP 17
--- NOTE | 2021-03-14 10:24 | P.PN ---
Subjective This is a pleasant 81-year-old female past medical history significant for hypertension, hypothyroidism, obstructive sleep apnea, hyperlipidemia, history of bronchitis. She does not follow with a copy editor. We have been asked to see in consultation for bradycardia. She currently is lives at [facility], She was sent to the emergency department on 03/12/21 for generalized weakness and found to be bradycardic heart rate in the 30s. Her home medications include metoprolol titrate 25 mg BID, metolazone 2.5 mg MWF, potassium chloride 20meq daily, magnesium oxide 400 mg daily, atorvastatin 20 mg nightly, Lasix 40 mg BID. Patient seen and examined at bedside, no acute distress. She denies any chest pain or shortness of breath. She denies any palpitations, lightheadedness or dizziness. Telemetry reviewed patient in sinus bradycardia heart rate has improved HR 40s-58. Her vital signs are stable. Her echocardiogram revealed EF of 5560 percent, LA severely dilated, mild mitral regurgitation, mild tricuspid regurgitation. She is currently maintained on atorvastatin 20 mg nightly, Lasix 40mg daily and IV fluids at 75 ml/hr. Labs this morning, sodium 134, potassium 3.5, BUN 22, serum creatinine 0.6, magnesium 1.6. PHYSICAL EXAMINATION Blood pressure 115/70, heart rate 48, afebrile oxygen saturations greater than 92% on 2 L nasal cannula CONSTITUTIONAL: No apparent distress. HEENT: Neck supple. No JVD. CHEST EXAMINATION: Lungs are clear to auscultation. HEART EXAMINATION: Regular rate and rhythm. S1, S2 heard. No murmurs, gallops or rub. ABDOMEN: Soft, nontender. Positive bowel sounds. EXTREMITIES: 2+ peripheral pulses, Redness bilateral lower extremities, No lower extremity edema and no calf tenderness. NEUROLOGIC EXAMINATION: Patient is awake, alert and oriented x2 ASSESSMENT Sinus bradycardia History of hypertension Hyperlipidemia Obstructive sleep apnea History of bronchitis Hypokalemia PLAN -Continue to hold any AV rojelio blocking agents -From a cardiology perspective, patient is stable to be discharged. At this time, patient has had an improvement in her heart rate with holding of her beta didi, no indication for pacemaker implantation at this time. -Recommend follow up outpatient Nurse Practitioner note has been reviewed, I agree with a documented findings and plan of care. Patient was seen and examined. Objective - Vital Signs Vital signs: Vital Signs Temp 97.4 F L 03/14/21 07:25 Pulse 48 L 03/14/21 07:47 Resp 17 03/14/21 07:25 BP 115/70 03/14/21 07:25 Pulse Ox 97 03/14/21 07:25 Intake & Output 03/13/21 03/14/21 03/14/21 18:59 06:59 18:59 Intake Total 240 Output Total 500 1350 Balance -260 -1350 Intake: Oral 240 Output: Urine 500 1350 Other: Voiding Method Toilet Toilet External Catheter # Voids 2 300 # Bowel Movements 1 - Labs CBC & Chem 7: 03/12/21 07:47 03/13/21 06:21
[2021-03-14] MEDS ORDERED: POTASSIUM CHLORIDE ER 20 MEQ TAB.ER PO STA (12:02)
--- NOTE | 2021-03-14 12:14 | P.DS ---
Providers Date of admission: 03/14/21 08:18 Attending physician: Linda Drew Consults: 03/12/21 09:04 Consult Physician Urgent Consulting Provider: Kayode Doll Consult Reason/Comments: bradycardia Do you want consulting provider notified?: Yes Primary care physician: Michael Moreno [facility] Course: Final diagnosis Sinus bradycardia, holding Beta didi, monitor heart rate now in the high 40s History of hypothyroidism, TSH and T4 within normal limits History of recent hospitalization for cellulitis on oral antibiotics History of generalized weakness with medical debility currently at rehab History of hypertension Hyperlipidemia Obstructive sleep apnea Hypokalemia probably related to poor oral intake Hypomagnesemia related to poor oral intake Hyponatremia, probably related to dehydration Discharge Disposition Patient is cleared medically for discharge back to rehab today she was cleared by cardiology to the office. We will hold her metoprolol at this time. Hospital course This is a pleasant 81 year old female who presents from [facility] for complaints of feeling fatigued. There is also concern for bradycardia. Patient denies any dizziness or lightheadedness, denies any chest pain, chest pressure or shortness breath. She denies any cough, congestion, fever or chills. Patient recently in the hospital for bilateral lower extremity cellulitis which was treated with antibiotics and discharged to rehab to complete a course of oral Augmentin and oral doxycycline which we will continue. Metoprolol was placed on hold in the EC. EKG on admission shows heart rate 38, sinus bradycardia, T-wave inversion in lead 3. This is similar to an EKG in 2017 however at that time the heart rate was in the 50s. 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 Labs on admission show a blood cell count 9.2, hemoglobin 12.1, sodium 134, potassium 3.5, BUN 33, creatinine 0.81, glucose 114, magnesium 1.5, troponin negative at 0.015, albumin is 3.2. TSH is 1.500, free T4 1 0.75. Covid PCR is not detected. Patient was evaluated by cardiology who recommends holding beta didi. Patient will be monitored overnight to see if her heart rate increases. Vital signs include a temperature of 98, heart rate 43 sinus bradycardia it was as low as 37, blood pressure 125/55, patient is 95% on 2 L nasal cannula. Patient is cleared medically by cardiology today for discharge, blood pressure is 115/70 and heart rate has maintained sinus bradycardia in the high 40s. There is no plan for permanent pacemaker this time. Echocardiogram shows an EF of 55-60% with mild mitral regurgitation and mild tricuspid regurgitation. Magneisum, 1.6, potassium 3.5, replace per protocol. 03/14/2021 Patient evaluated today at the bedside, she can return back to [facility] today. She was cleared by cardiology we will continue to hold her beta didi. Lungs are clear to auscultation, patient is bradycardic with a heart rate in the high 40s. She is oriented 3, focal neurological exam is negative. She can continue on her course of oral Augmentin and oral doxycycline as prescribed. Vital signs are stable today. Sodium is 134, we will hold metolazone for tomorrow's dosing and recheck sodium level in 2 days. Encourage oral intake. Please see medication reconciliation for list of current medications. Thank you for allowing us to participate in the care of this patient. Patient Condition at Discharge: Fair Plan - Discharge Summary Discharge Rx Participant: No New Discharge Prescriptions: New Famotidine [Pepcid] 20 mg PO BID 14 Days #28 tablet Continue Multivit-Min/Iron/Folic/Lutein [Centrum Silver Women Tablet] 1 tab PO DAILY@1700 Cholecalciferol [Vitamin D3 (25 Mcg = 1000 Iu)] 50 mcg PO DAILY@1700 Potassium Chloride [Klor-Con 20] 20 meq PO DAILY@0800 Furosemide [Lasix] 40 mg PO BID@0800,1700 Sucralfate [Carafate] 1 gm PO TID@0700,1100,1630 Na Phos,M-B/Na Phos,Di-Ba [Fleet Adult] 133 ml RECTAL DAILY PRN PRN Reason: Constipation Acetaminophen Tab [Tylenol] 1,000 mg PO Q8H PRN PRN Reason: Pain Amoxic-Pot Clav 875-125Mg [Augmentin 875-125] 1 tab PO BID@0800,1700 Cyanocobalamin [Vitamin B-12] 1,000 mcg PO Q48H Magnesium Oxide 400 mg PO DAILY@1700 Levothyroxine Sodium [Levoxyl] 50 mcg PO DAILY@0600 bisacodyL [Dulcolax] 10 mg RECTAL DAILY PRN PRN Reason: Constipation Ensure Enlive 120 ml PO BID@0800,1700 Doxycycline Hyclate 100 mg PO BID@0800,1700 L.acidoph,Paracasei, B.lactis [Probiotic] 1 cap PO DAILY@1700 Atorvastatin [Lipitor] 20 mg PO HS Magnesium Hydroxide [Milk of Magnesia Concentrate] 7,200 mg PO Q48H PRN PRN Reason: Constipation Discontinued Metoprolol Tartrate [Lopressor] 25 mg PO BID@0800,1700 metOLazone [Zaroxolyn] 2.5 mg PO MOWEFR@0600 Discharge Medication List Cholecalciferol [Vitamin D3 (25 Mcg = 1000 Iu)] 50 mcg PO DAILY@1700 04/07/17 [History] Furosemide [Lasix] 40 mg PO BID@0800,1700 04/07/17 [History] Multivit-Min/Iron/Folic/Lutein [Centrum Silver Women Tablet] 1 tab PO DAILY@1700 04/07/17 [History] Potassium Chloride [Klor-Con 20] 20 meq PO DAILY@0800 04/07/17 [History] Acetaminophen Tab [Tylenol] 1,000 mg PO Q8H PRN 03/12/21 [History] Amoxic-Pot Clav 875-125Mg [Augmentin 875-125] 1 tab PO BID@0800,1700 03/12/21 [History] Atorvastatin [Lipitor] 20 mg PO HS 03/12/21 [History] Cyanocobalamin [Vitamin B-12] 1,000 mcg PO Q48H 03/12/21 [History] Doxycycline Hyclate 100 mg PO BID@0800,1700 03/12/21 [History] Ensure Enlive 120 ml PO BID@0800,1700 03/12/21 [History] L.acidoph,Paracasei, B.lactis [Probiotic] 1 cap PO DAILY@1700 03/12/21 [History] Levothyroxine Sodium [Levoxyl] 50 mcg PO DAILY@0600 03/12/21 [History] Magnesium Hydroxide [Milk of Magnesia Concentrate] 7,200 mg PO Q48H PRN 03/12/21 [History] Magnesium Oxide 400 mg PO DAILY@1700 03/12/21 [History] Na Phos,M-B/Na Phos,Di-Ba [Fleet Adult] 133 ml RECTAL DAILY PRN 03/12/21 [H istory] Sucralfate [Carafate] 1 gm PO TID@0700,1100,1630 03/12/21 [History] bisacodyL [Dulcolax] 10 mg RECTAL DAILY PRN 03/12/21 [History] Famotidine [Pepcid] 20 mg PO BID 14 Days #28 tablet 03/14/21 [Rx] Follow up Appointment(s)/Referral(s): Apolinar Fischer MD [STAFF PHYSICIAN] - 2 Weeks Michael Wolfe MD [Primary Care Provider] - 1-2 days Ambulatory/Diagnostic Orders: Basic Metabolic Panel [LAB.AMB] Time Frame: 2 Days, Location: None Selected Activity/Diet/Wound Care/Special Instructions: Hold metalozone and recheck sodium in 2 days, can resume if sodium has improved Discharge Disposition: TRANSFER TO SNF/ECF
[2021-03-14] MEDS: MAGNESIUM SULFATE-D5W PMX 1 GM in DEXTROSE/WATER 1 100ML.BAG IVPB SCH ×2 (12:19→13:17)
[2021-03-14 14:31] VITALS: BP 129/61; PULSE 51; TEMP 97.5
--- NOTE | 2021-03-14 15:23 | CDI ---
Documentation Clarification Form Date: 03/14/2021 02:36:50 PM From: Tatum Peterson RN, CCDS Admit Date: 03/14/2021 08:18:00 AM Patient Name: Claudine Trent Visit Number: [id number] Discharge Date: ATTENTION: The Clinical Documentation Specialists (CDI) and [facility] Coding Staff appreciate your assistance in clarifying documentation. Please respond to the clarification below the line at the bottom and electronically sign. The CDI & [facility] Coding staff will review the response and follow-up if needed. Please note: Queries are made part of the Legal Health Record. If you have any questions, please contact the author of this message via ITS. Dr. Jaycob Pérez Bradycardia is documented in the ED assessment, Cardiology consult, H/P and subsequent progress notes and patient is noted to be on Beta didi. Please clarify if there is a relationship between the diagnosis and Beta blockers. 03/14 Cardiology progress notes: - At this time, patient has had an improvement in her heart rate with holding of her beta blockers, no indication for pacemaker implantation at this time. History/Risk Factors: Hypothyroidism, Hypertension Clinical Indicators: 81-year-old presenting from [facility] with concerns for bradycardia. Patient states she does have fatigue. She is unclear on her medications. 03/13 progress note: Metoprolol (25 mg bid) was placed on hold in the EC. Evaluated by cardiology who recommends holding beta didi. 03/12 Vital signs: 125/50 43 18 98 03/12 EKG: Sinus bradycardia at 38, Inferior T wave inversion 03/12 Labs: Na 134, 03/13 ECHO: EF of 55-60%, LA severely dilated, mild mitral regurgitation, mild tricuspid regurgitation. Treatment: Telemetry monitoring .9NS @ 75 ML/HR Hold beta didi Monitor renal function and electrolytes Please clarify the relationship, if any, which is clinically appropriate for this patient: [x ] Sinus bradycardia is due to Beta blockers [ ] Sinus bradycardia is due to dehydration [ ] Other explanation of clinical findings (please specify) [ ] Unable to determine (no explanation for clinical findings) (Template Last Revised: June 2020) MTDD
== END 2021-03-14 15:10 ==
LOC: EC 07:33 → 1SOBS 09:13 → 6NMEDSUR 16:05 → INTOOBSV 03-14 08:18 → OBSVTOIN 03-14 08:18 → UNDODISIN 03-14 15:10
PROVIDERS: ADMIT Hospitalist; ATTEND Hospitalist
DX: R00.1 Bradycardia, unspecified (principal); T44.7X5A Adverse effect of beta-adrenoreceptor antagonists, initial encounter; Z20.822 Contact with and (suspected) exposure to COVID-19; I10 Essential (primary) hypertension; E78.5 Hyperlipidemia, unspecified; G47.33 Obstructive sleep apnea (adult) (pediatric); E87.6 Hypokalemia; E83.42 Hypomagnesemia; E87.1 Hypo-osmolality and hyponatremia; E86.0 Dehydration; E03.9 Hypothyroidism, unspecified; F32.A Depression, unspecified; K44.9 Diaphragmatic hernia without obstruction or gangrene; Z79.890 Hormone replacement therapy; Z79.899 Other long term (current) drug therapy; Z96.643 Presence of artificial hip joint, bilateral
CPT/HCPCS: 99285; 96361; 96366 ×3; 96372 ×3; 96365; 36415; 93005; 93306; 97530; 97162; 97535; 97166; 84439; 84481; 80053; 80048; 83735 ×3; 84443; 84484; 85025; 85610; 85730; 87635; 71045; G0378 ×3; J3475 ×3; J1644 ×3